=== PATIENT | female | born 1960 | race Caucasian/White ===

== ENCOUNTER 2021-06-22 10:48 | Emergency (ER) | payer OTHER ==
[~2021-06-22] VITALS: Ht 167.6 cm; Wt 113.4 kg
[~2021-06-22 10:48] MED LIST: BUSPAR15 MG PO; FENTANYL PA25 MCG/HR TP; PRISTIQ50 MG PO; ROXANOL 20 M20 MG/ML PO; TRAZODONE 100100 MG PO; ZANAFLEX4 M1 PO
[2021-06-22] MEDS ORDERED: ABILIFY10 MG PO (10:57)
[2021-06-22] MEDS ORDERED: CYMBALTA (10:57)
[2021-06-22] MEDS ORDERED: AMBIEN 10 MG TA10 MG PO (10:57)
[2021-06-22 11:51] LABS: HEMATOCRIT 38.2 % (37.0-47.0); HEMOGLOBIN 12.6 gm/dL (12.0-15.0); MCH 29.6 pg (26.0-34.0); MCHC 33.1 g/dL (28.0-37.0); MCV 89.6 fL (80.0-100.0); RBC 4.26 mil/uL (4.20-5.00); WBC 6.3 thou/uL (4.0-11.0)
[2021-06-22 12:07] LABS: POTASSIUM 3.7 mmol/L (3.5-5.1)
[2021-06-22 12:24] LABS: URINE BILIRUBIN NEGATIVE (Negative); URINE BLOOD NEGATIVE (Negative); URINE CLARITY CLEAR; URINE COLOR YELLOW; URINE GLUCOSE-RANDOM* NEGATIVE (Negative); URINE KETONES NEGATIVE (Negative); URINE LEUKOCYTES-REFLEX TRACE (Negative); URINE NITRITE-REFLEX NEGATIVE (Negative); URINE PROTEIN (DIPSTICK) NEGATIVE (Negative); URINE SPECIFIC GRAVITY 1.015 (1.005-1.035)
[2021-06-22] MEDS ORDERED: CITRATE OF MAG296 M1 PO (14:26)
[2021-06-22 14:37] VITALS: BP 132/59
== END 2021-06-22 14:38 | disposition home or self-care (01) ==
LOC: ER 10:48
PROVIDERS: Physician Assistant
DX: K59.00 Constipation, unspecified (principal); R33.9 Retention of urine, unspecified; Z90.49 Acquired absence of other specified parts of digestive tract; Z98.890 Other specified postprocedural states; Z79.899 Other long term (current) drug therapy; Z79.891 Long term (current) use of opiate analgesic